=== PATIENT | female | born 1980 | race Caucasian/White ===

== ENCOUNTER 2017-03-24 05:37 | Emergency (ER) | payer OTHER ==
[2017-03-24 05:45] VITALS: RESP 16; TEMP 98.4
--- NOTE | 2017-03-24 06:15 | EDPHY ---
H & P Time Seen by Provider: 03/24/17 05:58 HPI/ROS: This patient complains of neck pain for 2 weeks. She describes the pain as sharp in nature and left-sided location. Currently the pain is 7/10 in intensity. She had partial relief from ibuprofen-800 mg that she took 2 hours prior to my evaluation. The symptoms worsen with movement she notes no other exacerbating or alleviating factors. She explains that over the past 2 weeks the pain has been constant but at times has been is mild is 1/10 intensity. She had a restless night of sleep and awakened at 3:00 a.m. with significant increase in the pain to severe intensity. She drove herself in by private vehicle for further evaluation. ROS: No fevers chills or other constitutional symptoms HEENT: No headache, cold symptoms or other complaints. No recent trauma. Integumentary: No skin rash or other skin complaints Neuro: She reports no numbness tingling weakness, bowel or bladder incontinence or other neuro symptoms. Musculoskeletal: No recent trauma. She reports that she had midline pain at the start of the the symptoms near the T1 vertebrae in the midline that she sometimes gets and attributes to her large pendulous breasts, but over the past week pain has shifted to the left neck and went from achy to more sharp in nature. She reports that it feels different then muscle strain or neck pain that she has had in the past Pulmonary: No shortness of breath Cardiovascular: No chest pain GI: Some nausea but no vomiting last week that has since resolved. : Last menstrual period was normal timing 1 week ago. 10 point ROS is otherwise negative Past Medical/Surgical History: Physical Exam Vital signs are normal. General: No acute distress HEENT: Atraumatic. Eyes: Pupils equal and react to light. Extraocular motions are intact. Lungs: No respiratory distress. Cardiac: Brisk capillary refill is intact throughout. Pulses are 2+ and symmetric in the affected extremity. Skin: No rash or pallor. Neuro: Alert and oriented x3 with no sensorimotor deficits. Smoking Status: Never smoked Physical Exam: Physical Exam Vital signs are normal. General: No acute distress HEENT: Atraumatic. No cranial tenderness. Eyes: Pupils equal and react to light. Extraocular motions are intact. Neck: Patient has no midline tenderness. She she has mild left-sided paraspinous tenderness but states that she "feels like the source of pain is deeper- in." Lateral flexion toward the affected side increases her pain. Slightly relief with lateral flexion away from the affected side. She is unable to extend her neck as this causes more pain but she is able to flex without significant change Lungs: No respiratory distress. Cardiac: Brisk capillary refill is intact throughout. Pulses are 2+ and symmetric in the affected extremity. Skin: No rash or pallor. Neuro: GCS 15. She maintains normal light touch sensory exam bilateral upper and lower extremities. She maintains symmetric 2+ biceps, triceps, brachioradialis and patellar DTRs bilaterally. 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 Initial differential diagnosis: Disc herniation, bony abnormality, degenerative disc disease, muscle strain, paraspinal abscess, Constitutional: Initial Vital Signs Temperature (C) 36.9 C 03/24/17 05:42 Heart Rate 86 03/24/17 05:42 Respiratory Rate 16 03/24/17 05:42 Blood Pressure 147/94 H 03/24/17 05:42 O2 Sat (%) 96 03/24/17 05:42 O2 Delivery Mode Room Air Allergies/Adverse Reactions: gluten [Gluten] Allergy (Verified 03/24/17 05:39) metronidazole [From Flagyl] Allergy (Verified 03/24/17 05:40) Home Medications: Medication Instructions Recorded Atorvastatin Calcium 03/24/17 Levothyroxine 03/24/17 Methocarbamol [Robaxin 750 mg (*)] 750 - 1,500 mg PO QID PRN #30 tab 03/24/17 traMADol [Ultram 50 mg (*)] 50 - 100 mg PO Q4 PRN #20 tab 03/24/17 MDM/Departure - MDM Diagnostics: Cervical spine x-rays: Loss of lordosis but no other abnormalities by my interpretation Imaging: Discussed imaging studies w/ faculty i on call medical assistant Radiologist ED Course/Re-evaluation: Discussion: This patient has significant discomfort in limited range of motion in her neck consistent with torticollis after antecedent 2 week mild neck pain. She has large pendulous breasts with may contribute to neck strain/ torticollis. This she has no radicular findings on exam or other concerning findings. However, she does have some findings on her neck exam is suggest that she may have a mild disc herniation-worsening with lateral flexion toward the affected side, partial improvement from lateral flexion away from the affected side but again no evidence of radiculopathy on exam or long tract symptoms. I counseled her regarding neck strain and mild disc herniations. Will start her on methocarbamol, and continue the ibuprofen, tramadol if needed and follow up with her primary care physician for recheck. She understands the need to return for any significant worsening of her symptoms despite the treatment plan. - Depart Disposition: Home, Routine, Self-Care Clinical Impression: Torticollis, acute Condition: Good Instructions: Spasmodic Torticollis (ED) Additional Instructions: Diagnosis: Torticollis of neck (muscle spasm of neck) Your neck pain this consistent with muscle strain. You may also have a mild disc herniation but have no loss of nerve function. Also, no significant bony abnormalities are appreciated under neck x-ray. Plan: Continue ibuprofen, add methocarbamol muscle relaxant if needed, also take Tylenol in addition if needed Your unable to sleep due to pain despite taking his medications, add tramadol opiate medication in addition. No driving, alcohol or work on methocarbamol or tramadol Gently daily stretches prior to taking a muscle relaxant or tramadol as discuss Call your primary care physician to arrange follow-up appointment in 3-7 days for a recheck. Return for any significant worsening despite the treatment plan Prescriptions: Methocarbamol [Robaxin 750 mg (*)] 750 - 1,500 mg PO QID PRN #30 tab PRN Reason: Muscle Spasms traMADol [Ultram 50 mg (*)] 50 - 100 mg PO Q4 PRN #20 tab PRN Reason: breakthrough pain Referrals: Patient,NotPresent [Primary Care Provider] - As per Instructions
[2017-03-24 06:55] VITALS: BP 127/97; PULSE 80; O2SAT 97
== END 2017-03-24 07:05 | disposition home or self-care (01) ==
LOC: CED 05:37
DX: M43.6 Torticollis (principal)
CPT/HCPCS: 72050-PO